=== PATIENT | male | born 1970 | race African-American/Black ===

== ENCOUNTER 2016-09-14 11:58 | Observation (INO) | payer BC ==
[2016-09-14] MEDS ORDERED: NS 0.9% 1000 ML* 1,000 ML IV ONE (12:34)
--- NOTE | 2016-09-14 12:56 | RAD ---
HISTORY: Seizure versus syncope COMPARISONS: August 15, 2016 TECHNIQUE: Multiple contiguous axial CT scans were obtained of the head without intravenous contrast. FINDINGS: HEMORRHAGE/INFARCT: There is no hemorrhage or acute infarct. MASSES/SHIFT: There is no mass or shift. EXTRA-AXIAL SPACES: There are no extra-axial fluid collections. SULCI AND VENTRICLES: The sulci and ventricles are normal in size and position for the patient's stated age. CEREBRUM: There are no focal parenchymal abnormalities. BRAINSTEM: There are no focal parenchymal abnormalities. CEREBELLUM: There are no focal parenchymal abnormalities. VESSELS: The vessels are grossly normal. PARANASAL SINUSES: The paranasal sinuses are clear. ORBITS: The orbits are unremarkable. BONES AND SOFT TISSUE: No bone or soft tissue abnormalities are noted. OTHER: None IMPRESSION: NO ACUTE INTRACRANIAL PATHOLOGY.
[2016-09-14 13:00] LABS: Hematocrit 46 % (42-52); Hemoglobin 15.4 g/dl (14.0-18.0); Mean Corpuscular HGB Conc 33 g/dl (31-36); Mean Corpuscular Hemoglobin 30 pg (27-31); Mean Corpuscular Volume 91 fL (80-94); Mean Platelet Volume 8 um3 (7.4-10.4); Red Blood Count 5.12 10^6/ul (4.0-5.4); Red Cell Distribution Width 14 % (10.5-15); White Blood Count 6.7 10^3/ul (3.5-10.8)
[2016-09-14 13:04] LABS: Urine Bilirubin Negative (Negative); Urine Glucose 1+(50 mg/dL) (Negative); Urine Nitrite Negative (Negative)
--- NOTE | 2016-09-14 13:06 | RAD ---
INDICATION: Seizure versus syncope. History of lymphoma. COMPARISON: August 15, 2016 TECHNIQUE: Dual energy PA and routine lateral views of the chest were obtained. REPORT: Clear lungs and pleural spaces. Negative for pneumothorax. The heart, pulmonary vasculature, and mediastinal contours are unremarkable. Unremarkable osseous structures and soft tissue contours. IMPRESSION: No evidence for acute intrathoracic disease.
[2016-09-14 13:14] LABS: ALT 48 U/L (7-52); AST 65 U/L (13-39); Albumin 4.3 g/dL (3.2-5.2); Alkaline Phosphatase 54 U/L (34-104); Anion Gap 8 mmol/L (2-11); BUN/Creatinine Ratio 13.8 (8-20); Blood Urea Nitrogen 12 mg/dL (6-24); CO2 Carbon Dioxide 26 mmol/L (22-32); Calcium 9.5 mg/dL (8.6-10.3); Chloride 105 mmol/L (101-111); EGFR Non-African American 94.1 (>60); Glucose 156 mg/dL (70-100); Potassium 3.6 mmol/L (3.5-5.0); Sodium 139 mmol/L (133-145); Total Protein 7.3 g/dL (6.4-8.9)
[2016-09-14 13:19] LABS: Alcohol < 10 mg/dL (<10)
[2016-09-14 13:20] LABS: Benzodiazepine Urine Screen None Detected (None Detect)
[2016-09-14 13:25] LABS: TSH (Thyroid Stimulating Horm) 1.56 mcIU/mL (0.34-5.60)
--- NOTE | 2016-09-14 13:50 | ED ---
I, Oh,Soohyun, scribed for Juan Shane MD on 09/14/16 at 1308 . Syncope/Near Syncope - HPI Summary HPI Summary: This 46 y/o male presents to ED from [place] for a syncopal episode. Pt was a in a car on his way to [facility] when pt c/o subjective heat and rolled down the window. The episode was witnessed by , and she reports "twitching" and gurgling sounds from mouth for 5-10 minutes. He appeared confused after the episode. Pt denies recalling the episode. continued to drive to [facility] and called the ambulance from the clinic. expresses concern for possible seizure. Pt denies any previous similar history. PMHx includes TIA in April 2016, but family member reports that this episode appears different from one in April. also reports that pt has been under much stress due to his current marital issues. Pt is nonsmoker, nondrinker. - History Of Current Complaint Chief Complaint: EDSyncope Time Seen by Provider: 09/14/16 12:20 Hx Obtained From: Patient Onset/Duration: Sudden Onset Timing: Minutes Context: Witnessed Activity At Onset: At Rest Associated Head Trauma: No Aggravating Factor(s): Nothing Alleviating Factor(s): Spontaneous Resolution Associated Signs And Symptoms: Seizure, Other - subjective fever - Allergies/Home Medications Allergies/Adverse Reactions: Allergies Allergy/AdvReac Type Severity Reaction Status Date / Time Penicillins [PCN] Allergy Rash Verified 03/31/16 11:18 PMH/Surg Hx/FS Hx/Imm Hx Cardiovascular History: Denies: Hx Pacemaker/ICD Respiratory History: Reports: Hx Seasonal Allergies, Other Respiratory Problems/ Disorders - SEASONAL ALLERGIES GI History: Reports: Hx Gastroesophageal Reflux Disease Sensory History: Denies: Hx Hearing Aid Psychiatric History: Reports: Hx Depression - hx -- following of brother Denies: Hx Panic Disorder - Surgical History Surgery Procedure, Year, and Place: LYMPHOMA REMOVED FROM BACK Infectious Disease History: No Infectious Disease History: Denies: Traveled Outside the [place] in Last 30 Days - Family History Known Family History: Positive: Other - GERD - Social History Alcohol Use: None Hx Substance Use: No Substance Use Type: Reports: None Hx Tobacco Use: No Smoking Status (MU): Never Smoked Tobacco Review of Systems Positive: Fever - subjective fever Neurological: Other - possible seizure Positive: Syncope Negative: Anxious, Depressed All Other Systems Reviewed And Are Negative: Yes Physical Exam - Summary Physical Exam Summary: VITAL SIGNS: Reviewed. GENERAL: Patient is a well developed and nourished male who is lying comfortable in the stretcher. Patient is not in any acute respiratory distress. HEAD AND FACE: No signs of trauma. No ecchymosis, hematomas or skull depressions. No sinus tenderness. EYES: PERRLA, EOMI x 2, No injected conjunctiva, no nystagmus. No photophobia. EARS: Hearing grossly intact. Ear canals and tympanic membranes are within normal limits. MOUTH: Oropharynx within normal limits. NECK: Supple, trachea is midline, no adenopathy, no JVD, no carotid bruit, no c- spine tenderness, neck with full ROM. No meningeal signs, no Kernig's or brudzinskis signs. CHEST: Symmetric, no tenderness at palpation LUNGS: Clear to auscultation bilaterally. No wheezing or crackles. CVS: Regular rate and rhythm, S1 and S2 present, no murmurs or gallops appreciated. ABDOMEN: Soft, non-tender. No signs of distention. No rebound no guarding, and no masses palpated. Bowel sounds are normal. EXTREMITIES: FROM in all major joints, no edema, no cyanosis or clubbing. NEURO: Alert and oriented x 3. No acute neurological deficits. Speech is normal and follows commands. SKIN: Dry and warm Triage Information Reviewed: Yes Vital Signs On Initial Exam: Initial Vitals Temp Pulse Resp BP Pulse Ox 97.4 F 85 16 146/99 100 09/14/16 12:00 09/14/16 12:00 09/14/16 12:00 09/14/16 12:00 09/14/16 12:00 Vital Signs Reviewed: Yes - [place] Coma Scale Coma Scale Total: 15 Diagnostics - Vital Signs Vital Signs Temp Pulse Resp BP Pulse Ox 09/14/16 12:00 97.4 F 85 16 146/99 100 - Laboratory Lab Results: Lab Results 09/14/16 09/14/16 09/14/16 Range/Units 12:05 12:05 12:05 WBC 6.7 (3.5-10.8) 10^3/ul RBC 5.12 (4.0-5.4) 10^6/ul Hgb 15.4 (14.0-18.0) g/dl Hct 46 (42-52) % MCV 91 (80-94) fL MCH 30 (27-31) pg MCHC 33 (31-36) g/dl RDW 14 (10.5-15) % Plt Count 185 (150-450) 10^3/ul MPV 8 (7.4-10.4) um3 Neut % (Auto) 62.0 (38-83) % Lymph % (Auto) 28.9 (25-47) % Powell % (Auto) 8.4 (1-9) % Eos % (Auto) 0.3 (0-6) % Baso % (Auto) 0.4 (0-2) % Absolute Neuts (auto) 4.1 (1.5-7.7) 10^3/ul Absolute Lymphs (auto) 1.9 (1.0-4.8) 10^3/ul Absolute Monos (auto) 0.6 (0-0.8) 10^3/ul Absolute Eos (auto) 0 (0-0.6) 10^3/ul Absolute Basos (auto) 0 (0-0.2) 10^3/ul Absolute Nucleated RBC 0 10^3/ul Nucleated RBC % 0 INR (Anticoag Therapy) 0.93 (0.89-1.11) Sodium Pending Potassium Pending Chloride Pending Carbon Dioxide Pending Anion Gap Pending BUN Pending Creatinine Pending Est GFR ( Amer) Pending Est GFR (Non-Af Amer) Pending BUN/Creatinine Ratio Pending Glucose Pending Lactic Acid (0.5-2.0) mmol/L Calcium Pending Magnesium Pending Total Bilirubin Pending AST Pending ALT Pending Alkaline Phosphatase Pending Troponin I 0.00 (<0.04) ng/mL Total Protein Pending Albumin Pending Globulin Pending Albumin/Globulin Ratio Pending TSH Pending Urine Color Urine Appearance Urine pH (5-9) Ur Specific Pigeon (1.010-1.030) Urine Protein (Negative) Urine Ketones (Negative) Urine Blood (Negative) Urine Nitrate (Negative) Urine Bilirubin (Negative) Urine Urobilinogen (Negative) Ur Leukocyte Esterase (Negative) Urine Glucose (Negative) Serum Alcohol Pending 09/14/16 09/14/16 Range/Units 12:05 12:40 WBC (3.5-10.8) 10^3/ul RBC (4.0-5.4) 10^6/ul Hgb (14.0-18.0) g/dl Hct (42-52) % MCV (80-94) fL MCH (27-31) pg MCHC (31-36) g/dl RDW (10.5-15) % Plt Count (150-450) 10^3/ul MPV (7.4-10.4) um3 Neut % (Auto) (38-83) % Lymph % (Auto) (25-47) % Powell % (Auto) (1-9) % Eos % (Auto) (0-6) % Baso % (Auto) (0-2) % Absolute Neuts (auto) (1.5-7.7) 10^3/ul Absolute Lymphs (auto) (1.0-4.8) 10^3/ul Absolute Monos (auto) (0-0.8) 10^3/ul Absolute Eos (auto) (0-0.6) 10^3/ul Absolute Basos (auto) (0-0.2) 10^3/ul Absolute Nucleated RBC 10^3/ul Nucleated RBC % INR (Anticoag Therapy) (0.89-1.11) Sodium Potassium Chloride Carbon Dioxide Anion Gap BUN Creatinine Est GFR ( Amer) Est GFR (Non-Af Amer) BUN/Creatinine Ratio Glucose Lactic Acid 1.4 (0.5-2.0) mmol/L Calcium Magnesium Total Bilirubin AST ALT Alkaline Phosphatase Troponin I (<0.04) ng/mL Total Protein Albumin Globulin Albumin/Globulin Ratio TSH Urine Color Straw Urine Appearance Clear Urine pH 8.0 (5-9) Ur Specific Pigeon 1.008 L (1.010-1.030) Urine Protein Negative (Negative) Urine Ketones Negative (Negative) Urine Blood Negative (Negative) Urine Nitrate Negative (Negative) Urine Bilirubin Negative (Negative) Urine Urobilinogen Negative (Negative) Ur Leukocyte Esterase Negative (Negative) Urine Glucose 1+(50 mg/dl) H (Negative) Serum Alcohol Result Diagrams: 09/14/16 12:05 09/14/16 12:05 Lab Statement: Any lab studies that have been ordered have been reviewed, and results considered in the medical decision making process. - Radiology CXR Xray Interpretation: No Acute Changes Radiology Interpretation Completed By: Radiologist - CT Brain CT Interpretation: No Acute Changes CT Interpretation Completed By: Radiologist - EKG 1205 Cardiac Rate: NL - 83 bpm EKG Rhythm: Sinus Rhythm EKG Comparison: No Significant Change - 08/15/2016 Course/Dx Assessment/Plan: This 46 y/o male presents to ED from [place] for a syncopal episode. Pt was a shabnam car on his way to [facility] when pt c/o subjective heat and rolled down the window. The episode was witnessed by , and she reports "twitching" and gurgling sounds from mouth for 5-10 minutes. He appeared confused after the episode. Pt denies recalling the episode. He also reports that he has been under a lot of stress. He has Hx of previous vasovagal episodes but give reports that he may have had a seizure. Blood work wnl. Head CT impression: No acute intracranial pathology. CXR impresin: No acute intrathoracic disease. I discussed the case with Dr. Phillips from neurology and he recommends an MRI w and W/O contrast and EEG and to admit to the hospitalist overnight. I discuss my physical exam, findings and test results with Dr. Salgado from the hospitalist services and she agrees to admit patient to his services. Patient is hemodynamically stable alert and oriented x 3. - Diagnoses Differential Diagnosis/HQI/PQRI: Positive: Cerebral Vascular Accident, Dysrhythmia, Hypoglycemia, Seizure, Transient Ischemic Attack, Vasovagal Episode Provider Diagnoses: Seizure vs Syncope - Physician Notifications Discussed Care Of Patient With: Dr. Phillips (Neurologist) at 1336 PM -- recommends MRI Brain and EEG. Dr. Salgado (Hospitalist) at 1347 PM Time Discussed With Above Provider: 13:36 Discharge - Discharge Plan Condition: Stable Disposition: ADMITTED TO [facility] documentation as recorded by the Abhinav wynn Soohyun accurately reflects the service I personally performed and the decisions made by me, Juan Shane MD.
[2016-09-14] MEDS ORDERED: Fluticasone NASAL SPRAY 50MCG* 16 gm SPRAY BTL BOTH NARES PRN (15:09)
[2016-09-14] MEDS ORDERED: Ondansetron ODT TAB* 4 MG PO PRN (15:11)
[2016-09-14] MEDS ORDERED: Acetaminophen TAB* 325 MG PO PRN (15:11)
[2016-09-14] MEDS ORDERED: Dextrose 50% Syringe 50 ML* 25 GM/50 ML SYRINGE IV PUSH PRN (15:19)
[2016-09-14] MEDS ORDERED: Gadoteridol* (CONTRAST) 279.3 MG/ML 10 ML IV ONE (16:06)
--- NOTE | 2016-09-14 16:29 | RAD ---
HISTORY: Syncope versus seizure COMPARISONS: March 31, 2016 TECHNIQUE: The following sequences were obtained of the head: Sagittal T1-weighted images, axial T2-weighted images, axial FLAIR images, axial susceptibility weighted images, axial T1-weighted images, coronal T1, T2 and FLAIR images through the mesial temporal lobes. Additionally, axial diffusion-weighted images were obtained with calculated apparent diffusion coefficients. Additionally, sagittal and axial T1 weighted images with thin section coronal T1-weighted images through the mesial temporal lobes were obtained after contrast enhancement with a gadolinium-based intravenous contrast agent. FINDINGS: HEMORRHAGE/INFARCT: There is no hemorrhage or acute infarct. MASSES/SHIFT: There is no mass or shift. EXTRA-AXIAL SPACES/MENINGES: There are no extra-axial fluid collections. SULCI AND VENTRICLES: The sulci and ventricles are normal in size and position for the patient's stated age. CEREBRUM: There are no focal brain parenchymal abnormalities. The mesial temporal lobes are symmetric in size, architecture, and signal intensity. The collateral white matter bundles are symmetric. The mamillary bodies and temporal horns of the lateral ventricles are symmetric in size. There is no appreciable cortical dysplasia or heterotopia. BRAINSTEM: There are no focal parenchymal abnormalities. CEREBELLUM: There are no focal parenchymal abnormalities. The cerebellar tonsils are normal in size and position. SELLA: The sella is normal. PINEAL: The pineal region is clear. CP ANGLE/TEMPORAL BONES: The labyrinthine structures are grossly normal. VESSELS: Normal flow-voids are noted within the visualized vertebral vasculature. DIFFUSION ABNORMALITIES: There are no diffusion abnormalities. PARANASAL SINUSES/MASTOIDS: The paranasal sinuses are clear. ORBITS: The orbits are unremarkable. BONES AND SOFT TISSUE: No bone or soft tissue abnormalities are noted. OTHER: There is no abnormal enhancement. IMPRESSION: NORMAL BRAIN. NO ABNORMAL ENHANCEMENT. THE MESIAL TEMPORAL LOBES ARE SYMMETRIC. THERE IS NO APPRECIABLE CORTICAL DYSPLASIA OR HETEROTOPIA.
[2016-09-14] MEDS: Insulin LISPRO* 1 UNITS UNIT SUBCUT SCH (17:19)
[2016-09-14] MEDS ORDERED: diPHENhydraMINE PO* 50 MG PO PRN (19:07)
--- NOTE | 2016-09-14 19:42 | HP ---
HOSPITAL MEDICINE HISTORY AND PHYSICAL: DATE OF ADMISSION: 09/14/16 PRIMARY CARE PHYSICIAN: Dr. Madison. ATTENDING PHYSICIAN: Dr. Lennox Salgado *(dictation provided by Yumiko Boss NP). CHIEF COMPLAINT: "Passing out." HISTORY OF PRESENT ILLNESS: Mr. Danielle is a 46-year-old male with a past medical history of suspected TIA and diabetes who presents today to the hospital with concern for an episode in which he "passed out." Mr. Danielle states he has been under extreme stress recently with difficulties in his relationship with his and caring for his 2 children which have special needs. He states that over the past couple of days, the stress level has been even higher than usual. Today, he was in an argument with his in the car when he felt " completely overwhelmed" and passed out. His reports that she noticed that his eyes were back in his head and then he became unresponsive. He awoke in the car and was confused and she brought him to the [facility] as they were near that location. They called EMS and the patient was brought in. He denies any other acute complaint and his primary complaint is of extreme stress. In the emergency room, Mr. Danielle was seen in consultation by Dr. Phillips from Neurology. He recommends that the patient go on for EEG and MRI. His laboratory workup was unremarkable. His tox screen was completely negative. His CT of the brain was normal. His chest x-ray was normal. I will note that the patient was admitted to our hospital in March 2016 with concern for right hand weakness and suspected possible conversion disorder, although it was officially termed a transient ischemic attack. The patient also reports he was in the emergency room about 1 month ago with similar symptoms of "passing out" in the setting of extreme stress. PAST MEDICAL HISTORY: 1. Concern for TIA, March 2016. 2. Type 2 diabetes, non-insulin dependent. 3. Depression. 4. Anxiety. FAMILY HISTORY: Reviewed and noncontributory. SOCIAL HISTORY: No report of alcohol, tobacco, or drug use. The patient continues to live with his , although they are having difficulty and considering separation. He also has 2 children with special needs. He is unable to offer healthcare proxy at this time. REVIEW OF SYSTEMS: A 14-point review of systems was completed with Mr. Danielle and all those not mentioned above are negative. PHYSICAL EXAMINATION GENERAL: Mr. Danielle is sitting up in the bed. He is in no acute distress. He is calm and cooperative to my examination. VITAL SIGNS: Temperature 97.4, heart rate 75, respiratory rate 21, O2 saturation 98% on room air, blood pressure 134/82. LUNGS: Clear to auscultation bilaterally with no accessory muscle use and good aeration. HEART: S1, S2. No murmur, rub, or gallop and regular. ABDOMEN: Soft and nontender with bowel sounds positive x4. EXTREMITIES: No cyanosis or edema. NEURO: He is alert and oriented x3. He moves all extremities equally. There is no facial asymmetry or focal weakness. Extraocular movements are intact. SKIN: Intact. DIAGNOSTIC STUDIES/LAB DATA: WBC 6.7, hemoglobin 15.4, hematocrit 46, platelet count 185. INR 0.93. Sodium 139, potassium 3.6, chloride 105, serum bicarbonate 26, BUN 12, creatinine 0.87, glucose 156, lactic acid 1.4. Troponin 0.00. Urine shows no evidence of infection. Tox screen is negative. CT brain shows "no acute intracranial pathology." Chest x-ray shows "no evidence for acute intrathoracic disease." ASSESSMENT AND PLAN: Mr. Danielle is a 46-year-old male who presents today to the hospital after having an episode in which he "passed out" while arguing with his . Plans are for observation in the hospital for the followin. Question syncope versus seizure: This is now the third episode which Mr. Danielle seems to have symptoms consistent with a conversion disorder; however, he has been seen in consultation by Neurology, who feel it is prudent to obtain an EEG and MRI to more definitively rule out a physical cause for his symptoms today. Those have been ordered. The patient will have seizure precautions. He will be monitored on telemetry unit. He has a recent echocardiogram. So, I do not feel it is necessary to repeat that at this point. 2. Type 2 diabetes: The patient will have blood glucoses q.a.c. with a lispro sliding scale. We will hold metformin. 3. DVT prophylaxis with early mobility. 4. Disposition to [facility]. TIME SPENT: Approximately 60 minutes was spent on admission of this patient, more than half the time was spent with the patient at the bedside reviewing the events leading up to this hospitalization, performing the physical examination, and reviewing the plan of care. YUMIKO BOSS NP CC: Dr. Mdaison* [id number]/[facility] #: [id number] [facility] FACILITYTejal
[2016-09-15] MEDS: Insulin LISPRO* 1 UNITS UNIT SUBCUT SCH (07:29)
[2016-09-15] MEDS ORDERED: Sertraline* 50 MG TAB PO SCH (09:00)
[2016-09-15] MEDS ORDERED: Aspirin EC Low Dose* 81 MG TAB.EC PO SCH (09:00)
[2016-09-15 11:24] VITALS: BP 141/76
--- NOTE | 2016-09-15 12:32 | CONS ---
CONSULTATION REPORT: DATE OF CONSULT/DICTATION: 09/15/16 PATIENT OF: JOSUÉ Mcginnis; Dr. Madison. HISTORY OF PRESENT ILLNESS: This is a 46-year-old man I am asked to evaluate for possible seizure. He notes that he has been under extreme stress recently and described it in great detail. He had an event yesterday that he feels is in association with the stress, but it was also last month and the situation was just beginning. He had an episode. I spoke to his over the phone who confirmed this last month. He had an apparent passing out episode in the bathroom after a marital dispute. This past week, his moved out, had an attempt at reconciliation which failed and he has not been sleeping well and he feels like that the situation is "killing me." He had such intense stress he made an appointment to see his physician yesterday and then when he was going to drive the car to see the doctor, his stress level was too high that he felt incapacitated so he asked his to drive him. She apparently agreed but then there was a delay, so they missed the initial appointment and they left the physician's office to get a bite before going back to the office and while they were in the car, they had another heated discussion at which point he felt hot, rolled down the windows. He then slumped against the corridor and had some staring and twitching of his eyes and his head twitched. She said that "it was both back and forth and side to side as best as I can tell." He was fine after a few seconds, although confused that it had happened. He also was seen on March 31 with some right-sided weakness which was a concern that this was a stroke or TIA and was seen by Dr. Tyson who included on the differential a conversion disorder especially since he has had recent stress with a of a brother. His workup including MRI scan and CTA was negative at that time. PAST MEDICAL HISTORY: He has type 2 diabetes, non-insulin dependent; depression ; anxiety, history is noncontributory. SOCIAL HISTORY: He does not smoke, drink, or use drugs. REVIEW OF SYSTEMS: Negative in all 14 spheres other than the HPI. He has had no headache. He also says he is not suicidal but significantly depressed. PHYSICAL EXAM: Temperature 98.4, pulse 88, respirations 16, blood pressure 122/ 71. He is alert and oriented with normal speech and comprehension. Cranial nerves II through XII were intact. Fundi were benign. Motor exam revealed normal tone, strength, and coordination. Gait: Sensation intact to light touch. Reflexes are 2 and equal, downgoing toes. Neck was supple. Chest: Clear. Cardiovascular: Regular rate and rhythm. Abdomen: Soft with positive bowel sounds. DIAGNOSTIC STUDIES/LAB DATA: His MRI scan was reviewed with and without contrast and this was normal. He had a normal EEG. Labs include normal CBC, INR, CMP other than AST at 65, glucose of 156. UA was negative. Negative toxicology. IMPRESSION AND PLAN: I discussed with Mr. Danielle that his symptoms sound most like a stress reaction rather than primary neurological disease, but I discussed with him also that it is impossible to just prove neurological disease on the basis of testing which at this point is complete including his MRI scan with and without contrast and his EEG. From the 's description and his description, it sounds like he had a feeling of heat and then had some slumping with some twitching of his head, so even if this was an organic episode , this may have been some syncope with some convulsive twitching rather than a primary seizure, but he was feeling incapacitated by stress even before this happened, that is why he was going to his physician. So, it is unclear whether this was even a syncopal episode which it could have been versus purely due to psychological stress. In any event, he needs to have psychological care to help him cope better with this. I think it will be premature to treat him with anticonvulsives at this time and he knows not to drive until he has a more definitive plan for dealing with his stress on an outpatient basis and if he has any more episodes, he can call my office. I do not think that this was primary seizure. [id number]/[facility] #: [id number] [facility]OSPITALTejal
--- NOTE | 2016-09-15 22:06 | EEG ---
ELECTROENCEPHALOGRAPHY: DATE OF STUDY/DICTATION: 09/15/16 - ROOM #443 PATIENT OF: Dr. Phillips. HISTORY: This is a 46-year-old man being evaluated for possible seizure. MEDICATIONS: None listed. INTERPRETATION: With the patient awake, background cerebral activity consists of moderate amplitude posterior dominant 10 Hz rhythm, which attenuates with eye opening and reappears with eye closure. No activation procedures are performed. The patient never falls asleep. No epileptiform potentials, focal abnormalities, or major asymmetries of background are noted. CLINICAL IMPRESSION: This awake EEG is within normal limits. [id number]/[facility] #: [id number] [facility]ITALTejal
--- NOTE | 2016-09-15 22:57 | DS ---
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 SECONDARY DISCHARGE DIAGNOSES: 1. Depression and anxiety. 2. History of possible transient ischemic attack. 3. Lsb-dlvxyhf-lpcjymwru diabetes. DISCHARGE MEDICATIONS: 1. Xanax 0.5 mg p.o. t.i.d. as needed for severe anxiety. 2. Aspirin 81 mg p.o. daily. 3. Zhane 100 mg p.o. daily. 4. Fluticasone nasal spray 2 sprays in both nares daily as needed. 5. Zoloft 100 mg p.o. daily. 6. Ambien 10 mg p.o. at bedtime as needed for insomnia. 7. Metformin 850 mg p.o. daily. MEDICATION CHANGES: 1. Increased Xanax to p.r.n. use for severe anxiety. 2. Increased Zoloft. HOSPITAL IMAGIN. CT of the brain shows no acute intracranial pathology. 2. Chest x-ray shows no acute pathology. 3. MRI of the brain again shows no pathology, specifically no areas of abnormal enhancements, the study was completed both with and without contrast. 4. EKG shows a sinus rhythm with some ST segment elevation in an upsloping pattern likely representing repolarization. Compared to EKG from August, this is identical. 5. Telemetry monitoring shows normal sinus rhythm. HOSPITAL COURSE: This is an incredibly pleasant 46-year-old gentleman with a history of depression and anxiety and zrh-rhjkdgo-yrcffycix diabetes who presented to the hospital with complaints of syncope. The patient had an episode in March where he had a syncopal episode associated with some mild weakness. His workup at that time was unremarkable and the patient was started on aspirin for secondary prophylaxis. The patient had another syncopal episode approximately 1 month ago and then again yesterday prior to admission. Each syncopal episode has been proceeded by severe emotional stress. Episode in March occurred shortly after the of a family member. The episode a month ago was associated with his stating that she wished to leave him and the episode yesterday was of similar circumstance where apparently his stated that she was not interested in continuing to reconcile their marriage. He experiences some prodrome of feeling a heated sensation and severe anxiety prior to syncope. No associated incontinence. Questioned whether he has a true postictal period. The patient was subsequently admitted under observation status. Dr. Phillips, neurologist, was involved in his care, suggested EEG and MRI study. He did have a recent echocardiogram from his prior admission in March that was unremarkable including a negative bubble study, thus echo was not repeated. MRI of the brain was unremarkable as was EEG. There is no definitive evidence to say that this was not an epileptic event, but seems quite convincing that a syncope is likely psychogenic in origin based on the history provided. DISCHARGE AND DISPOSITION: The patient will be discharged to home where he lives with his special needs children and his intermittently. We recommend increasing Zoloft to 100 mg daily and using Xanax on an as-needed basis for severe anxiety. The patient is already involved in counseling services and he is encouraged to continue those. Also recommend close followup with his primary care provider. JOSUÉ KEBEDE CC: Catina Madison MD* [id number]/[facility] #: [id number] MTDD
== END 2016-09-15 12:31 | disposition home or self-care (01) ==
LOC: ED 11:58 → MEDTELE 15:05
PROVIDERS: ADMIT Internal Medicine; ATTEND Hospitalist
DX: R55 Syncope and collapse (principal); F32.9 Major depressive disorder, single episode, unspecified; F41.9 Anxiety disorder, unspecified; E11.9 Type 2 diabetes mellitus without complications; Z79.84 Long term (current) use of oral hypoglycemic drugs; Z79.82 Long term (current) use of aspirin; Z79.899 Other long term (current) drug therapy; Z88.0 Allergy status to penicillin
CPT/HCPCS: 36415; 70450; 70553; 71020; 80053; 80307; 80320; 81003; 83605; 83735; 84443; 84484; 85025; 85610; 93005; 95816; 96360; 96361; 99284; A9270-GY; A9579; G0378; G0480

== ENCOUNTER 2017-05-11 01:00 | Emergency (ER) | payer BC, OTHER ==
[2017-05-11 03:38] VITALS: BP 112/79
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
--- NOTE | 2017-05-11 07:53 | RAD ---
INDICATION: Head injury. COMPARISON: Comparison is made with a prior CT of the brain from September 14, 2016. TECHNIQUE: Contiguous axial sections of the brain were obtained from the skull base to the vertex without contrast. FINDINGS: The ventricles, cisterns and sulci are within normal limits. No significant focal abnormality or mass effect is seen. There is no evidence for hemorrhage. No significant focal osseous abnormality is seen. The visualized portion of the paranasal sinuses and mastoid air cells appear clear. IMPRESSION: NO EVIDENCE FOR ACUTE INTRACRANIAL ABNORMALITY.
== END 2017-05-11 03:43 | disposition home or self-care (01) ==
LOC: ED 01:00
DX: S09.90XA Unspecified injury of head, initial encounter (principal); R51 Headache; W50.0XXA Accidental hit or strike by another person, initial encounter; Y93.9 Activity, unspecified; Y92.9 Unspecified place or not applicable
CPT/HCPCS: 70450; 99282

== ENCOUNTER 2018-06-29 13:21 | Emergency (ER) | payer BC ==
[2018-06-29 14:28] LABS: ABS Basophils 0 10^3/ul (0-0.2); ABS Eosinophils 0.1 10^3/ul (0-0.6); ABS Monocytes 0.3 10^3/ul (0-0.8); ABS Neutrophils 2.3 10^3/ul (1.5-7.7); ABS Nucleated RBC 0 10^3/ul; Eosinophil % 1.3 % (0-6); Hematocrit 44 % (42-52); Lymphocyte % 42.5 % (25-47); Mean Corpuscular HGB Conc 34 g/dl (31-36); Mean Corpuscular Hemoglobin 32 pg (27-31); Mean Corpuscular Volume 92 fL (80-94); Mean Platelet Volume 7.1 um3 (7.4-10.4); Nucleated Red Blood Cells % 0.2; Platelet Count 190 10^3/ul (150-450); Red Blood Count 4.74 10^6/ul (4.00-5.40); Red Cell Distribution Width 14 % (10.5-15); White Blood Count 4.6 10^3/ul (3.5-10.8)
--- NOTE | 2018-06-29 14:29 | ED ---
Abdominal Pain/Male - HPI Summary HPI Summary: This patient is a 47 year old M presenting to [facility] accompanied by with a chief complaint of constantly worsening constant 7/10 RLQ abd pain since 06/26/18. Pt endorses back tightness, insomnia and lightheadedness secondary to pain. PMHx prostatitis; he finished Bactrim 3 weeks ago after pain subsided, currently rx Flomax. Dr. Paige is pts urologist. Pt denies N/V, decreased appetite, periumbilical pain, fever, chills, diaphoresis SHx. He notes he has been using Aleve for pain management which has been working moderately well to this point. Rx metformin for PMHx DM, rx ASA for PMHx TIA. - History of Current Complaint Chief Complaint: EDAbdPain Stated Complaint: GROIN PAIN RT SIDED LOWER ABD PAIN Time Seen by Provider: 06/29/18 13:50 Hx Obtained From: Patient Onset/Duration: Gradual Onset, Lasting Days, Still Present, Worse Since - constantly worsening Timing: Constant Severity Initially: Mild Severity Currently: Moderate Pain Intensity: 7 Pain Scale Used: 0-10 Numeric Location: Discrete At: RLQ Radiates: Yes Radiates to: Other - R groin Aggravating Factor(s): Nothing Alleviating Factor(s): Medications - Aleve Associated Signs And Symptoms: Positive: Dizzy - lightheaded secondary to pain, Back Pain - "tightness". Negative: Diaphoresis, Fever, Decreased Appetite, Nausea, Vomiting Similar Episode/Dx As:: Dx prostatitis - Allergies/Home Medications Allergies/Adverse Reactions: Allergies Allergy/AdvReac Type Severity Reaction Status Date / Time No Known Allergies Allergy Verified 06/29/18 13:30 PMH/Surg Hx/FS Hx/Imm Hx Endocrine/Hematology History: Reports: Hx Diabetes - on oral meds Cardiovascular History: Reports: Hx Syncope Denies: Hx Hypertension, Hx Pacemaker/ICD Respiratory History: Reports: Hx Seasonal Allergies, Other Respiratory Problems/ Disorders - SEASONAL ALLERGIES GI History: Reports: Hx Gastroesophageal Reflux Disease History: Reports: Other Problems/Disorders - prpostatisis Denies: Hx Dialysis, Hx Renal Disease Musculoskeletal History: Reports: Hx Orthopedic Injury - shoulder Sensory History: Denies: Hx Legally Blind, Hx Deafness, Hx Hearing Aid Opthamlomology History: Denies: Hx Legally Blind EENT History: Denies: Hx Deafness Neurological History: Reports: Hx Transient Ischemic Attacks (TIA), Other Neuro Impairments/Disorders - vertigo, vasovagal episode Psychiatric History: Reports: Hx Anxiety, Hx Depression, Other Psychiatric Issues/Disorders - Suicidal ideations Hx; severe marital stress Denies: Hx Panic Disorder - Surgical History Surgery Procedure, Year, and Place: LIPOMA REMOVED FROM BACK,. VASECTOMY,. GANGLION CYSTS REMOVED Hx Anesthesia Reactions: No - Immunization History Date of Tetanus Vaccine: UTD Date of Influenza Vaccine: 2015 Infectious Disease History: No Infectious Disease History: Denies: Traveled Outside the [place] in Last 30 Days - Family History Known Family History: Positive: Other - GERD - Social History Occupation: Employed Full-time Alcohol Use: Rare Hx Substance Use: No Substance Use Type: Reports: None Hx Tobacco Use: No Smoking Status (MU): Never Smoked Tobacco Review of Systems Negative: Fever, Chills Negative: Erythema Negative: Sore Throat Negative: Chest Pain Negative: Shortness Of Breath, Cough Positive: Abdominal Pain - RLQ. Negative: Vomiting, Nausea, Other - decreased appetite Negative: dysuria, hematuria Positive: Myalgia - back tightness Negative: Rash Neurological: Other - lightheaded secondary to pain, NEGATIVE: dizziness All Other Systems Reviewed And Are Negative: Yes Physical Exam - Summary Physical Exam Summary: Constitutional: Well-developed, Well-nourished, Alert. (-) Distressed Skin: Warm, Dry HENT: Normocephalic; Atraumatic Eyes: Conjunctiva normal Neck: Musculoskeletal ROM normal neck. (-) JVD, (-) Stridor, (-) Tracheal deviation Cardio: Rhythm regular, rate normal, Heart sounds normal; Intact distal pulses; The pedal pulses are 2+ and symmetric. Radial pulses are 2+ and symmetric. (-) Murmur Pulmonary/Chest wall: Effort normal. (-) Respiratory distress, (-) Wheezes, (-) Rales Abd: Soft, (-) epigastric tenderness, (-) Distension, (-) Guarding, (-) Rebound , (+) mild suprapubic and RLQ tenderness Musculoskeletal: (-) Edema Lymph: (-) Cervical adenopathy Neuro: Alert, Oriented x3 Psych: Mood and affect Normal Triage Information Reviewed: Yes Vital Signs On Initial Exam: Initial Vitals Temp Pulse Resp BP Pulse Ox 97.3 F 57 16 147/91 99 06/29/18 13:22 06/29/18 13:22 06/29/18 13:22 06/29/18 13:22 06/29/18 13:22 Vital Signs Reviewed: Yes Diagnostics - Vital Signs Vital Signs Temp Pulse Resp BP Pulse Ox 06/29/18 13:22 97.3 F 57 16 147/91 99 - Laboratory Result Diagrams: 06/29/18 14:09 06/29/18 14:09 Lab Statement: Any lab studies that have been ordered have been reviewed, and results considered in the medical decision making process. - CT A/P CT Interpretation Completed By: Radiologist Summary of CT Findings: No acute findings. Dr. Easley has reviewed this report. Re-Evaluation - Re-Evaluation 1 Re-Evaluation Time: 20:17 Change: Unchanged Comment: Discussed imgaging and labwork results, pt does not require surgery. After drinking contrast, pt is having diarrhea. Repeat exam, pt is not tender. Negative work-up. Abdominal Pain Fem Course/Dx - Course Course Of Treatment: A 47-year-old M presents to the ED with a CC of RLQ abd pain for 3 days. (+) lightheaded and insomnia secondary to pain, back tightnes. (-) N/V, decreased appetite, diaphoresis, chills, fever, periumbilical pain. PMHx prostatisis, DM, TIA. discontinued bactrim 3 weeks ago after pain subsided from prostatitis, now just taking flomax. Pain has continually worsened since its onset [address] A/P was (-). In the ED course, pt was given toradol. Pt labs show high MCH, low MPV, and high glucose. Upon re-eval: Repeat exam, pt is not tender. Negative work-up. Will D/C home to f/u with PCP. Dx: lower abd pain possibly muscoluskeletal. - Diagnoses Provider Diagnoses: Lower abdominal pain Discharge - Sign-Out/Discharge Documenting (check all that apply): Patient Departure - Discharge Plan Condition: Stable Disposition: HOME Referrals: Catina Madison MD [Primary Care Provider] - 1 Week Additional Instructions: Follow up with your primary care provider within the week. Return to the emergency department for changing or worsening symptoms. - Attestation Statements Document Initiated by Scribe: Yes Documenting Scribe: Peewee Richard Provider For Whom Scribe is Documenting (Include Credential): Dr. Sampson Easley MD Scribe Attestation: I, Peewee Richard, scribed for Dr. Sampson Easley MD on 06/29/18 at 1917.
[2018-06-29 14:55] LABS: EGFR Non-African American 87.8 (>60)
[2018-06-29] MEDS ORDERED: Iodixanol* (CONTRAST) 320 MG/ML 100 ML SDV IV ONE (15:27)
[2018-06-29] MEDS ORDERED: Ketorolac INJ* 30 MG/ML 1 ML VIAL IV PUSH ONE (15:36)
[2018-06-29 16:20] LABS: Urine Appearance Clear; Urine Blood Negative (Negative); Urine Color Yellow; Urine Ketones Negative (Negative); Urine Protein Negative (Negative); Urine Urobilinogen Negative (Negative)
--- NOTE | 2018-06-29 18:22 | RAD ---
EXAM: CT Abdomen and Pelvis With Intravenous Contrast EXAM DATE/TIME: 06/29/2018 5:31 PM CLINICAL HISTORY: 47 years old, male; Pain; Abdominal pain; Localized; Right lower quadrant (rlq); Additional info: Rlq/suprapubic pain, HX prostatitis TECHNIQUE: Axial computed tomography images of the abdomen and pelvis with intravenous contrast. All CT scans at this facility use at least one of these dose optimization techniques: automated exposure control; mA and/or kV adjustment per patient size (includes targeted exams where dose is matched to clinical indication); or iterative reconstruction. Coronal and sagittal reformatted images were created and reviewed. CONTRAST: 91 ml of VISIPAQUE 320 administered intravenously. COMPARISON: No relevant prior studies available. FINDINGS: Lower thorax: No acute findings. ABDOMEN: Liver: Normal. No mass. Gallbladder and bile ducts: Normal. No calcified stones. No ductal dilation. Pancreas: Normal. No ductal dilation. Spleen: Normal. No splenomegaly. Adrenals: Normal. No mass. Kidneys and ureters: Normal. No hydronephrosis. Stomach and bowel: Normal. No obstruction. No mucosal thickening. Appendix: Normal appendix. No CT findings of appendicitis. PELVIS: Bladder: Unremarkable as visualized. Reproductive: Unremarkable as visualized. ABDOMEN and PELVIS: Intraperitoneal space: Normal. No free air. No significant fluid collection. Bones/joints: No acute fracture. No dislocation. Soft tissues: Unremarkable. Vasculature: Normal. No abdominal aortic aneurysm. Lymph nodes: Normal. No enlarged lymph nodes. IMPRESSION: No acute findings. To contact [facility] with a general question: [facility] - [phone] For direct physician to physician contact: Physician Hotline - [phone] [facility] ([facility] Facility ID #[id number])
[2018-06-29] MEDS ORDERED: Lidocaine PATCH 5%* 1 PATCH TRANSDERM ONE (19:20)
[2018-06-29 19:46] VITALS: BP 120/63
[2018-06-30] MEDS ORDERED: Lidocaine Patch REMOVE* 1 NOTE MISC PATCH OFF SCH (21:00)
== END 2018-06-29 19:44 | disposition home or self-care (01) ==
LOC: ED 13:21
DX: R10.30 Lower abdominal pain, unspecified (principal); E11.8 Type 2 diabetes mellitus with unspecified complications; Z79.84 Long term (current) use of oral hypoglycemic drugs; K21.9 Gastro-esophageal reflux disease without esophagitis; Z86.73 Personal history of transient ischemic attack (TIA), and cerebral infarction without residual deficits
CPT/HCPCS: 36415; 74177; 80053; 81003; 83605; 83690; 85025; 86140; 96374; 96375; 99282; A9270-GY; J1885; Q9967

== ENCOUNTER 2019-01-10 04:55 | Emergency (ER) | payer BC, OTHER ==
[2019-01-10] MEDS ORDERED: NS 0.9% 1000 ML** 1,000 ML IV ONE (05:37)
[2019-01-10] MEDS ORDERED: NS 0.9% 1000 ML** 1,000 ML IV.FLUID IV ONE (05:38)
[2019-01-10] MEDS ORDERED: Acetaminophen TAB* 325 MG PO ONE (05:49)
[2019-01-10] MEDS ORDERED: cefTRIAXone(*) 1 GM in NS 0.9% 50 ML* 50 ML IVPB ONE (05:49)
--- NOTE | 2019-01-10 05:55 | ED ---
GI/ HPI - HPI Summary HPI Summary: Patient is a 48-year-old male who presents emergency department with 3 days of fever and dysuria. Patient states he's had a fever at home 102.8F. Patient urinate this morning and noticed blood in the toilet bowl and presents for evaluation. Patient notes mild epigastric discomfort that radiates into chest. Associated symptoms of nausea without vomiting or diarrhea. Past medical history of diabetes. Symptoms are moderate in severity. No current modifying factors. Patient notes lower back pain bilaterally. Denies flank pain. No history of urolithiasis. - History of Current Complaint Chief Complaint: EDUrogenitalProblems Time Seen by Provider: 01/10/19 05:35 Stated Complaint: FEVER/BLOOD IN URINE PER PT Hx Obtained From: Patient Pain Intensity: 10 - Additional Pertinent History Primary Care Physician: [id number] - Allergy/Home Medications Allergies/Adverse Reactions: Allergies Allergy/AdvReac Type Severity Reaction Status Date / Time No Known Allergies Allergy Verified 06/29/18 13:30 Home Medications: Home Medications Metformin HCl 1,000 mg PO DAILY 01/10/19 [History Confirmed 01/10/19] PMH/Surg Hx/FS Hx/Imm Hx Previously Healthy: Yes Endocrine/Hematology History: Reports: Hx Diabetes - on oral meds Cardiovascular History: Reports: Hx Syncope Denies: Hx Hypertension, Hx Pacemaker/ICD Respiratory History: Reports: Hx Seasonal Allergies, Other Respiratory Problems/ Disorders - SEASONAL ALLERGIES GI History: Reports: Hx Gastroesophageal Reflux Disease History: Reports: Other Problems/Disorders - prpostatisis Denies: Hx Dialysis, Hx Renal Disease Musculoskeletal History: Reports: Hx Orthopedic Injury - shoulder Sensory History: Denies: Hx Legally Blind, Hx Deafness, Hx Hearing Aid Opthamlomology History: Denies: Hx Legally Blind Neurological History: Reports: Hx Transient Ischemic Attacks (TIA), Other Neuro Impairments/Disorders - vertigo, vasovagal episode Psychiatric History: Reports: Hx Anxiety, Hx Depression, Other Psychiatric Issues/Disorders - Suicidal ideations Hx; severe marital stress Denies: Hx Panic Disorder - Surgical History Surgery Procedure, Year, and Place: LIPOMA REMOVED FROM BACK,. VASECTOMY,. GANGLION CYSTS REMOVED Hx Anesthesia Reactions: No - Immunization History Date of Tetanus Vaccine: UTD Date of Influenza Vaccine: 2015 Infectious Disease History: No Infectious Disease History: Denies: Traveled Outside the [place] in Last 30 Days - Family History Known Family History: Positive: Other - GERD, Non-Contributory - Social History Occupation: Employed Full-time Lives: With Family Alcohol Use: None Hx Substance Use: No Substance Use Type: Reports: None Hx Tobacco Use: No Smoking Status (MU): Never Smoked Tobacco Review of Systems Positive: Fever, Chills Eyes: Negative Positive: Epistaxis Positive: Chest Pain Respiratory: Negative Positive: Abdominal Pain, Nausea. Negative: Vomiting, Diarrhea Positive: dysuria, flank pain, hematuria Musculoskeletal: Negative Skin: Negative Neurological: Negative All Other Systems Reviewed And Are Negative: Yes Physical Exam Triage Information Reviewed: Yes Vital Signs On Initial Exam: Initial Vitals Temp Pulse Resp BP Pulse Ox 100.2 F 117 18 107/85 98 01/10/19 05:01 01/10/19 05:01 01/10/19 05:01 01/10/19 05:01 01/10/19 05:01 Vital Signs Reviewed: Yes Appearance: Positive: Well-Appearing - Pt. sitting up in bed in NAD. Pleasant. Skin: Positive: Warm, Dry Head/Face: Positive: Normal Head/Face Inspection Eyes: Positive: Normal, EOMI, HOLA Neck: Positive: Supple Respiratory/Lung Sounds: Positive: Clear to Auscultation, Breath Sounds Present Cardiovascular: Positive: Normal, RRR Abdomen Description: Positive: Other: - Abd. is soft with lower abd. discomfort. Mild bilateral CVA tenderness. Neurological: Positive: Normal, CN Intact II-III Psychiatric: Positive: Affect/Mood Appropriate Diagnostics - Vital Signs Vital Signs Temp Pulse Resp BP Pulse Ox 01/10/19 05:01 100.2 F 117 18 107/85 98 - Laboratory Result Diagrams: 01/10/19 06:06 01/10/19 06:06 Lab Statement: Any lab studies that have been ordered have been reviewed, and results considered in the medical decision making process. GIGU Course/Dx - Course Course Of Treatment: Pt. presenting for hematuria and dysuria. Pt. with low grade fever and tachycarida. Pt. started on IV fluids and labs ordered. Given hematuria and back pain will obtain CT w/o to r/o urolithiasis.ECG done at 0537 shows a sinus rhythm of 94bpm, normal axis, no ST elevation or depression. Labs show mild leukocytosis of 12. CRP in 60's. Labs otherwise unremarkable. U/A was polluted with RBCs and micro could not be resulted, culture sent. CT is negative for acute findings other than enlarged prostate. On re-exam pt. is sleeping comfortably. Results discussed. Will tx with cipro. To increase fluids and rest. Tylenol or motrin for pain and fever as directed. To f.u with PCP or uro in 2-3 days. To return to ER for high fevers, vomiting, worsening sxs or if concerned. Pt. understands and agrees with plan. - Diagnoses Differential Diagnoses - Male: Pyelonephritis, Renal Colic, Ureteral Calculi, Urinary Tract Infection Provider Diagnoses: Hemorrhagic cystitis Discharge - Sign-Out/Discharge Documenting (check all that apply): Patient Departure Patient Received Moderate/Deep Sedation with Procedure: No - Discharge Plan Condition: Improved Disposition: HOME Prescriptions: Ciprofloxacin TAB* [Cipro 500 MG TAB*] 500 mg PO BID #28 tab Phenazopyridine TAB* [Pyridium 100 mg TAB*] 100 mg PO TID #9 tab Patient Education Materials: Urinary Tract Infection in Men (ED) Referrals: Catina Madison MD [Primary Care Provider] - Trung Jauregui MD [Medical Doctor] - Additional Instructions: Schedule a follow up appointment with PCP or your urologist in 2-3 days Take antibiotic as directed Increase fluids Tylenol or motrin for fever and pain as directed Return to ER if symptoms change or worsen - Billing Disposition and Condition Condition: IMPROVED Disposition: Home
[2019-01-10 05:56] LABS: Urine Appearance Turbid; Urine Color Red
[2019-01-10 05:57] LABS: Urine Specific Gravity 1.024 (1.010-1.030)
[2019-01-10 06:07] LABS: Urine Bacteria Absent (Absent); Urine Red Blood Cell 3+(>10/hpf) (Absent)
[2019-01-10 06:16] LABS: ABS Basophils 0.1 10^3/ul (0-0.2); ABS Monocytes 0.9 10^3/ul (0-0.8); ABS Neutrophils 10.1 10^3/ul (1.5-7.7); Hematocrit 45 % (42-52); Hemoglobin 15.1 g/dL (14.0-18.0); Lymphocyte % 8.2 %; Mean Corpuscular HGB Conc 34 g/dL (31-36); Mean Corpuscular Hemoglobin 31 pg (27-31); Mean Corpuscular Volume 92 fL (80-94); Mean Platelet Volume 7.1 fL (7.4-10.4); Platelet Count 190 10^3/uL (150-450); Red Blood Count 4.88 10^6 /uL (4.18-5.48); Red Cell Distribution Width 14 % (10.5-15)
[2019-01-10 06:47] LABS: Troponin I 0.01 ng/mL (<0.04)
[2019-01-10 06:50] LABS: Albumin 4.3 g/dL (3.2-5.2); Albumin/Globulin Ratio 1.3 (1-3); BUN/Creatinine Ratio 13.2 (8-20); C Reactive Protein 66.61 mg/L (<8.01); Calcium 9.1 mg/dL (8.6-10.3); EGFR African American 82.6 (>60); EGFR Non-African American 68.3 (>60); Globulin 3.2 g/dL (2-4); Potassium 3.7 mmol/L (3.5-5.0); Total Bilirubin 1.8 mg/dL (0.2-1.0); Total Protein 7.5 g/dL (6.4-8.9)
[2019-01-10 08:13] VITALS: BP 124/76
== END 2019-01-10 08:20 | disposition home or self-care (01) ==
LOC: ED 04:55
DX: N30.01 Acute cystitis with hematuria (principal); N40.0 Benign prostatic hyperplasia without lower urinary tract symptoms; R94.31 Abnormal electrocardiogram [ECG] [EKG]; E11.9 Type 2 diabetes mellitus without complications; R55 Syncope and collapse; K21.9 Gastro-esophageal reflux disease without esophagitis; Z79.84 Long term (current) use of oral hypoglycemic drugs; Z86.73 Personal history of transient ischemic attack (TIA), and cerebral infarction without residual deficits
CPT/HCPCS: 36415; 74176; 80053; 81003; 83605; 84484; 85025; 86140; 87040; 87077; 87086; 87186; 93005; 96361; 96365; 99283; A9270-GY; J0696

== ENCOUNTER 2019-01-11 17:43 | Emergency (ER) | payer BC ==
[2019-01-11 18:13] LABS: Urine Appearance Clear; Urine Bacteria Absent (Absent); Urine Bilirubin Negative (Negative); Urine Blood Negative (Negative); Urine Color Amber; Urine Glucose Negative (Negative); Urine Ketones Negative (Negative); Urine Nitrite Positive (Negative); Urine Protein Negative (Negative); Urine Red Blood Cell Trace(0-2/hpf) (Absent); Urine Specific Gravity 1.001 (1.010-1.030); Urine Urobilinogen Negative (Negative); Urine White Blood Cell Trace(0-5/hpf) (Absent)
[2019-01-11 20:24] VITALS: BP 117/66
--- NOTE | 2019-01-11 20:43 | ED ---
GI/ HPI - HPI Summary HPI Summary: Patient is a 48 y/o M presenting to ED with complaints of decreased urine output. He was seen at [facility] yesterday for hematuria, dysuria and fever, was discharged to home with Dx of hemorrhagic cystitis along with prescriptions for Cipro and Phenazopyridine. Today, patient states that he has been experiencing decreased urinary output, noting that he is only producing "drops" of urine. However, he states that he still is experiencing urgency of urination. Patient is followed by Dr. Rogers, he states that he had been taking Flomax previously but is unsure for how long. He claims he was asked by Dr. Rogers to stop taking Flomax. Per triage, patient had called Dr. Rogers today about his Sx and he was advised to come to ED. He reports no fever today. Patient denies prior episodes of such Sx. He reports normal fluid intake. PMHx of diabetes, patient is on metformin. PMHx of GERD, prostatisis, TIA, vertigo, anxiety, depression. PSHx of lipoma removal, vasectomy, ganglion cyst removal. FMHx of GERD. Patient has never smoked tobacco, denies alcohol and substance usage. Per triage, "Pt states blood in urine today. Since then he has been having very painful urination with urgency/frequency/blood. Pt called Dr. Funez who told pt to come here. Pt with c/o lower abd and lower back pain. Pt was here yesterday for similar symptoms, pain has worsened". On triage, pain is rated 8/10. Nothing is noted to aggravate/alleviate Sx. Home medications and allergies are reviewed. - History of Current Complaint Chief Complaint: EDUrogenitalProblems Time Seen by Provider: 01/11/19 20:30 Stated Complaint: BLOOD IN URINE PER PT Hx Obtained From: Patient Onset/Duration: Started Hours Ago, Started Days Ago, Still Present Timing: Constant, Lasting Hours, Lasting Days Severity: Moderate Current Severity: Severe Pain Intensity: 8 Location of Pain: Other - lower abdominal pain, lower back pain per traige Associated Signs and Symptoms: Positive: Back Pain - lower, Hematuria, Dysuria, Abdominal Pain - lower, Other: - decreased urine output, patient has urgency of urination, normal fluid intake. Negative: Fever Aggravating Factor(s): Nothing Alleviating Factor(s): Nothing - Additional Pertinent History Primary Care Physician: [id number] - Allergy/Home Medications Allergies/Adverse Reactions: Allergies Allergy/AdvReac Type Severity Reaction Status Date / Time No Known Allergies Allergy Verified 01/11/19 17:52 PMH/Surg Hx/FS Hx/Imm Hx Endocrine/Hematology History: Reports: Hx Diabetes - on oral meds Cardiovascular History: Reports: Hx Syncope Denies: Hx Hypertension, Hx Pacemaker/ICD Respiratory History: Reports: Hx Seasonal Allergies, Other Respiratory Problems/ Disorders - SEASONAL ALLERGIES GI History: Reports: Hx Gastroesophageal Reflux Disease History: Reports: Other Problems/Disorders - prostatisis Denies: Hx Dialysis, Hx Renal Disease Musculoskeletal History: Reports: Hx Orthopedic Injury - shoulder Sensory History: Denies: Hx Legally Blind, Hx Deafness, Hx Hearing Aid Opthamlomology History: Denies: Hx Legally Blind Neurological History: Reports: Hx Transient Ischemic Attacks (TIA), Other Neuro Impairments/Disorders - vertigo, vasovagal episode Psychiatric History: Reports: Hx Anxiety, Hx Depression, Other Psychiatric Issues/Disorders - Suicidal ideations Hx; severe marital stress Denies: Hx Panic Disorder - Surgical History Surgery Procedure, Year, and Place: LIPOMA REMOVED FROM BACK,. VASECTOMY,. GANGLION CYSTS REMOVED Hx Anesthesia Reactions: No - Immunization History Date of Tetanus Vaccine: UTD Date of Influenza Vaccine: 2015 Infectious Disease History: No Infectious Disease History: Denies: Traveled Outside the [place] in Last 30 Days - Family History Known Family History: Positive: Other - GERD - Social History Alcohol Use: None Hx Substance Use: No Substance Use Type: Reports: None Hx Tobacco Use: No Smoking Status (MU): Never Smoked Tobacco Review of Systems Constitutional: Other - NEGATIVE - DECREASED FLUID INTAKE Negative: Fever Positive: Abdominal Pain - LOWER Genitourinary: Other - POSITIVE - DECREASED URINARY OUTPUT Positive: dysuria, hematuria, urgency - patient reports urgency of urination Musculoskeletal: Other - POSITIVE - LOWER BACK PAIN All Other Systems Reviewed And Are Negative: Yes Physical Exam - Summary Physical Exam Summary: VITAL SIGNS: Reviewed. GENERAL: Patient is a well-developed and nourished MALE who is lying comfortable in the stretcher. Patient is not in any acute respiratory distress. HEAD AND FACE: No signs of trauma. No ecchymosis, hematomas or skull depressions. No sinus tenderness. EYES: PERRLA, EOMI x 2, No injected conjunctiva, no nystagmus. EARS: Hearing grossly intact. Ear canals and tympanic membranes are within normal limits. MOUTH: Oropharynx within normal limits. NECK: Supple, trachea is midline, no adenopathy, no JVD, no carotid bruit, no c- spine tenderness, neck with full ROM CHEST: Symmetric, no tenderness at palpation LUNGS: Clear to auscultation bilaterally. No wheezing or crackles. CVS: Regular rate and rhythm, S1 and S2 present, no murmurs or gallops appreciated. ABDOMEN: Soft, non-tender. No signs of distention. No rebound no guarding, and no masses palpated. Bowel sounds are normal. RECTAL EXAM: Normal sized prostate, no tenderness EXTREMITIES: FROM in all major joints, no edema, no cyanosis or clubbing. NEURO: Alert and oriented x 3. No acute neurological deficits. Speech is normal and follows commands. SKIN: Dry and warm Triage Information Reviewed: Yes Vital Signs On Initial Exam: Initial Vitals Temp Pulse Resp BP Pulse Ox 98.1 F 73 16 130/79 99 01/11/19 17:46 01/11/19 17:46 01/11/19 17:46 01/11/19 17:46 01/11/19 17:46 Vital Signs Reviewed: Yes Diagnostics - Vital Signs Vital Signs Temp Pulse Resp BP Pulse Ox 01/11/19 20:15 98.9 F 66 16 117/66 100 01/11/19 17:46 98.1 F 73 16 130/79 99 - Laboratory Lab Results: Lab Results 01/11/19 Range/Units 18:01 Urine Color Missy Urine Appearance Clear Urine pH 6.0 (5-9) Ur Specific [place] 1.001 L (1.010-1.030) Urine Protein Negative (Negative) Urine Ketones Negative (Negative) Urine Blood Negative (Negative) Urine Nitrate Positive A (Negative) Urine Bilirubin Negative (Negative) Urine Urobilinogen Negative (Negative) Ur Leukocyte Esterase Negative (Negative) Urine WBC (Auto) Trace(0-5/hpf) (Absent) Urine RBC (Auto) Trace(0-2/hpf) (Absent) Urine Bacteria Absent (Absent) Urine Glucose Negative (Negative) Lab Statement: Any lab studies that have been ordered have been reviewed, and results considered in the medical decision making process. Re-Evaluation - Re-Evaluation First Eval Re-Evaluation Time: 21:02 Comment: Bladder scan had been done, only 25 cc found in bladder. Discussed results of bladder scan and UA with patient. Patient reports dysuria, this is likely related to his Dx of cystitis. Patient has already been prescribed 500 mg BID Cipro. He is advised to continue with Cipro and to call his urologist tomorrow morning for an earlier appointment. He is additionally advised to return to ED if he develops a fever. Patient is agreeable with discharge to home. GIGU Course/Dx - Course Course Of Treatment: Patient is a 48 y/o M presenting to ED with complaints of decreased urine output. He was seen at [facility] yesterday for hematuria, dysuria and fever, was discharged to home with Dx of hemorrhagic cystitis along with prescriptions for Cipro and Phenazopyridine. Today, patient states that he has been experiencing decreased urinary output, noting that he is only producing "drops" of urine. However, he states that he still is experiencing urgency of urination. Patient is followed by Dr. Rogers, he states that he had been taking Flomax previously but is unsure for how long. He claims he was asked by Dr. Rogers to stop taking Flomax. Per triage, patient had called Dr. Rogers today about his Sx and he was advised to come to ED. He reports no fever today. Patient denies prior episodes of such Sx. He reports normal fluid intake. Physical exam is normal, rectal exam showed normal sized prostate and no tenderness. UA was missy colored, positive nitrates, trace WBC and RBC. During ED course, patient was given ibuprofen 800 mg PO ED ONCE. Bladder scan had been done, only 25 cc found in bladder. Discussed results of bladder scan and UA with patient. Patient reports dysuria, this is likely related to his Dx of cystitis. Patient has already been prescribed 500 mg BID Cipro. He is advised to continue with Cipro and to call his urologist tomorrow morning for an earlier appointment. He is additionally advised to return to ED if he develops a fever. Patient is agreeable with discharge to home. - Diagnoses Provider Diagnoses: Cystitis Discharge - Sign-Out/Discharge Documenting (check all that apply): Patient Departure - discharge Patient Received Moderate/Deep Sedation with Procedure: No - Discharge Plan Condition: Stable Disposition: HOME Prescriptions: Ibuprofen TAB* [Motrin TAB* 800 MG] 800 mg PO Q6H PRN #30 tab PRN Reason: Pain Patient Education Materials: Urinary Tract Infection in Men (ED) Referrals: Catina Madison MD [Primary Care Provider] - 3 Days Ronald Rogers MD [Medical Doctor] - 1 Day Additional Instructions: PLEASE RETURN TO THE ED IMMEDIATELY FOR ANY WORSENING OR CONCERNING SYMPTOMS. IF YOU DEVELOP A FEVER, RETURN TO THE EMERGENCY DEPARTMENT. CALL YOUR UROLOGIST , DR. ROGERS, TOMORROW MORNING FOR AN EARLIER APPOINTMENT. FOLLOW UP WITH YOUR PRIMARY CARE PHYSICIAN. - Attestation Statements Document Initiated by Scribe: Yes Documenting Scribe: SANDEEP MOON Provider For Whom Scribe is Documenting (Include Credential): LAURA HOLLOWAY MD Scribe Attestation: I, SANDEEP MOON, scribed for LAURA HOLLOWAY MD on 01/11/19 at 3541. Status of Scribe Document: Ready
[2019-01-11] MEDS ORDERED: Ibuprofen TAB* 400 MG PO ONE (21:07)
--- NOTE | 2019-01-12 06:02 | PN ---
Progress Note - Progress Note Date of Service: 01/10/19 Note: Urine culture preliminary grew Escherichia coli 50-75,000 Patient was placed on Cipro prior to discharge He returns the following day continuing to c/o cystitis sxs Sensitivities not returned at this time He was advised to remain on cipro We will await sensitivities at this time and patient will remain on cipro UA yesterday shows WBC or Leuks.
== END 2019-01-11 21:30 | disposition home or self-care (01) ==
LOC: ED 17:43
DX: N30.90 Cystitis, unspecified without hematuria (principal); E11.9 Type 2 diabetes mellitus without complications; K21.9 Gastro-esophageal reflux disease without esophagitis; N41.9 Inflammatory disease of prostate, unspecified; F41.9 Anxiety disorder, unspecified; F32.9 Major depressive disorder, single episode, unspecified; Z79.84 Long term (current) use of oral hypoglycemic drugs; Z86.73 Personal history of transient ischemic attack (TIA), and cerebral infarction without residual deficits
CPT/HCPCS: 81003; 81015; 87086; 99282; A9270-GY